=== PATIENT | male | born 1970 | race Caucasian/White ===

== ENCOUNTER 2022-12-13 14:33 | Emergency (ER) | payer BC ==
[2022-12-13] MEDS ORDERED: Sodium Chloride 0.9% 10 ML Syringe FLUSH PRN (14:46)
[2022-12-13 15:19] LABS: BASOPHILS ABSOLUTE AUTO 0.01 K/mm3 (0.01-0.08); BASOPHILS PERCENT AUTO 0.1 % (0.1-1.2); EOSINOPHILS ABSOLUTE AUTO 0.04 K/mm3 (0.04-0.54); EOSINOPHILS PERCENT AUTO 0.6 (0.8-7.0); HEMATOCRIT 45.5 % (40.1-51.0); HEMOGLOBIN 15.4 gm/dl (13.7-17.5); IMMATURE GRAN ABSOLUTE AUTO 0.01 K/mm3 (0.00-0.10); IMMATURE GRAN PERCENT AUTO 0.1 % (<=1.0); LYMPHOCYTES PERCENT AUTO 11.3 % (21.8-53.1); MEAN CORPUSCULAR HEMOGLOBIN 30.9 pg (25.7-32.2); MEAN CORPUSCULAR HGB CONC 33.8 g/dl (32.2-35.5); MEAN CORPUSCULAR VOLUME 91.2 fl (79.0-92.2); MEAN PLATELET VOLUME 9.4 fl (9.4-12.3); MONOCYTES ABSOLUTE AUTO 0.75 K/mm3 (0.30-0.82); MONOCYTES PERCENT AUTO 10.5 % (5.3-12.2); NEUTROPHILS PERCENT AUTO 77.4 % (34.0-67.9); PLATELET COUNT,PLT 231 K/mm3 (163-337); RED BLOOD CELL COUNT 4.99 M/mm3 (4.63-6.08); WHITE BLOOD CELL COUNT,WBC 7.11 K/mm3 (4.23-9.07)
[2022-12-13 15:42] LABS: PROTHROMBIN TIME 10.7 SECONDS (9.7-12.0)
[2022-12-13 15:43] LABS: PTT,PARTIAL THROMBOPLSTIN TIME 27.8 SECONDS (21.7-31.4)
[2022-12-13 15:57] LABS: A/G RATIO 1.1 (1-2); ALBUMIN 4.2 g/dl (3.4-5.0); BILIRUBIN TOTAL 1.2 mg/dL (0.2-1.0); BUN/CREATININE RATIO 11.8 (14-18); CREATININE 1.1 mg/dL (0.7-1.3); EST CRCL DRUG DOSING (CG) 76.77 mL/min; MAGNESIUM 1.8 mg/dL (1.8-2.4); PROTEIN TOTAL,TP 8.2 g/dl (6.4-8.2)
== END 2022-12-13 16:57 | disposition home or self-care (01) ==
LOC: JD.ED 14:33
DX: R07.9 Chest pain, unspecified (principal)
CPT/HCPCS: 36415; 71045; 71045-26; 80053; 83735; 83880; 84484; 85025; 85610; 85730; 93005; 93010; 99284; 99285

== ENCOUNTER 2024-07-22 07:05 | Day surgery (SDC) | payer MEDICAID ==
[2024-07-22] MEDS: Lactated Ringers 1,000 ML IV SCH (07:30)
[2024-07-22] MEDS: Acetaminophen 325 MG Tab PO SCH (07:45)
[2024-07-22] MEDS: oxyCODONE ER 10 MG TAB.ER PO SCH (07:45)
[2024-07-22] MEDS: Pregabalin 25 MG Cap PO SCH (07:45)
[2024-07-22] MEDS ORDERED: Sodium Chloride 0.9% 10 ML Syringe FLUSH PRN (08:08)
[2024-07-22] MEDS ORDERED: Propofol 200 MG/20 ML SDV ONE ×4 (08:23→10:33)
[2024-07-22] MEDS ORDERED: fentaNYL 100 MCG/2 ML SDV ONE (08:27)
[2024-07-22] MEDS ORDERED: ceFAZolin 2 GM Vial ONE (08:28)
[2024-07-22] MEDS ORDERED: Sodium Chloride 0.9% 10 ML Syringe FLUSH SCH (09:00)
[2024-07-22] MEDS ORDERED: Labetalol 100 MG/20 ML MDV ONE (09:39)
[2024-07-22] MEDS ORDERED: dexmedeTOMIDine HCl 200 MCG/2 ML SDV ONE (09:44)
[2024-07-22] MEDS ORDERED: Lactated Ringers 1,000 ML IV ONE (10:30)
[2024-07-22] MEDS: Morphine 8 MG, EPINEPHrine 0.3 MG, Cefuroxime 750 MG, Ketorolac 30 MG, Sodium Chloride ... PRN (10:51)
[2024-07-22] MEDS: VANCOmycin 1 GM SDV ONE (10:51)
[2024-07-22] MEDS: Tranexamic Acid 1,000 MG/10 ML Vial ONE (10:51)
[2024-07-22] MEDS ORDERED: fentaNYL 100 MCG/2 ML SDV IVPUSH PRN (11:18)
[2024-07-22] MEDS ORDERED: HYDROmorphone 0.5 MG/0.5 ML Syringe IVPUSH PRN (11:18)
[2024-07-22] MEDS ORDERED: Ondansetron 4 MG/2 ML SDV IVPUSH PRN (11:18)
[2024-07-22] MEDS: oxyCODONE 5 MG Tab PO PRN (12:00)
== END 2024-07-22 16:40 | disposition home or self-care (01) ==
LOC: JD.SDS 07:05
PROVIDERS: ATTEND Orthopaedic Surgery
DX: M16.0 Bilateral primary osteoarthritis of hip (principal); I10 Essential (primary) hypertension; E03.8 Other specified hypothyroidism; E78.00 Pure hypercholesterolemia, unspecified; E83.42 Hypomagnesemia; Z79.890 Hormone replacement therapy; Z79.899 Other long term (current) drug therapy
CPT/HCPCS: 73501-26-RT; 73501-RT; 97110-GP; 97116-GP; 97162-GP; A9270-GY; C1713; C1776; J0171; J0690; J0697; J1885; J1920; J2272; J2704; J3010; J3490; J7120